=== PATIENT | male | born 1950 | race Caucasian/White ===

== ENCOUNTER → 2017-10-05 | Outpatient (CLI) | payer BC ==
[~2017-10-05] MED LIST: AMLO5TAB PO; CLINDAMYCIN300 MG PO; KEFLEX 500MG.500 MG PO; MINOCYCLINE 10100 MG PO; OMEGA-31 CAP PO; VALSARTAN HCTZ PO
--- NOTE | 2017-10-05 14:01 | RADIOLOGY REPORT PS360 ---
[id number] (PINKY)-3 VIEWS CLINICAL INDICATION: Pain STRAIN RT LITTLE FINGER ORDERING PHYSICIAN: Reese Guillaume MD PATIENT AGE: 67 years COMPARISON: None FINDINGS: 3 views show no fracture or dislocation. No bony or joint abnormality. IMPRESSION: Negative right fifth finger
== END ==
LOC: RAD 13:15
DX: S66.911A Strain of unspecified muscle, fascia and tendon at wrist and hand level, right hand, initial encounter (principal)